=== PATIENT | male | born 1990 | race African-American/Black ===

== ENCOUNTER 2018-11-16 21:42 | Emergency (ER) | payer OTHER ==
[2018-11-16 22:04] VITALS: BP 137/86; PULSE 80; RESP 18; TEMP 98
[2018-11-16] MEDS ORDERED: KETOROLAC 60 MG/2 ML VIAL IM STA (22:35)
--- NOTE | 2018-11-16 22:37 | ED ---
General Adult HPI - General Chief complaint: Dental/Oral Stated complaint: abscessed tooth Source: patient, RN notes reviewed, old records reviewed Mode of arrival: ambulatory Limitations: no limitations - History of Present Illness Initial comments: 28-year-old male patient with no pertinent past medical history presents to ED with 2 days of tooth pain. Patient states that approximately 2 days ago he began to have pain in his left lower molar and realized it was broken. Patient states that he contact his dentist was not able to be seen until Monday. Patient to ED for pain control. Patient denies any other signs or symptoms. Patient denies fever/chills, nausea vomiting diarrhea, chest pain, shortness breath, abdominal pain. Systemic: Pt denies fatigue, myalgia, fever/chills, rash. Pt denies weakness, night sweats, weight loss. Neuro: Pt denies headache, visual disturbances, syncope or pre-syncope. HEENT: Pt denies ocular discharge or irritation, otalgia, rhinorrhea, pharyngitis or notable lymphadenopathy. Cardiopulmonary: Pt denies chest pain, SOB, heart palpitations, dyspnea on exertion. Abdominal/GI: Pt denies abdominal pain, n/v/d. : Pt denies dysuria, burning w/ urination, frequency/urgency. Denies new onset urinary or bowel incontinence. MSK: Pt denies myalgia, loss of strength or function in extremities. Neuro: Pt denies new onset weakness, paresthesias. - Related Data Home Medications Medication Instructions Recorded Confirmed Ibuprofen [Motrin] 800 mg PO BID PRN 11/16/18 11/16/18 Previous Rx's Medication Instructions Recorded Amoxicillin 500 mg PO Q8H 10 Days day 11/16/18 Ibuprofen [Motrin] 600 mg PO Q6HR PRN #40 day 11/16/18 Allergies Allergy/AdvReac Type Severity Reaction Status Date / Time acetaminophen [From Lortab] Allergy Rash/Hives Verified 11/16/18 22:28 diphenhydramine Allergy Rash/Hives Verified 11/16/18 22:28 [From Benadryl] hydrocodone Allergy Rash/Hives Verified 11/16/18 22:28 Review of Systems ROS Statement: Those systems with pertinent positive or pertinent negative responses have been documented in the HPI. ROS Other: All systems not noted in ROS Statement are negative. Past Medical History Past Medical History: No Reported History History of Any Multi-Drug Resistant Organisms: None Reported Past Surgical History: No Surgical Hx Reported Past Psychological History: No Psychological Hx Reported Smoking Status: Current every day smoker Past Alcohol Use History: None Reported Past Drug Use History: None Reported General Exam - General Exam Comments Initial Comments: Constitutional: NAD, AOX3, Pt has pleasant affect. HEENT: NC/AT, trachea midline, neck supple, no lymphadenopathy. Posterior pharynx non erythematous, without exudates. External ears appear normal, without discharge. Mucous membranes moist. Eyes PERRLA, EOM intact. There is no scleral icterus. No pallor noted. Dental exam revealed poor dentition, tooth # 19 broken, mildly tender to palpation, gum of tooth 19 also mildly tender to palpation, no erythema disrcharge or abscess noted. Cardiopulmonary: RRR, no murmurs, rubs or gallops, no JVD noted. Lungs CTAB in anterior and posterior schofield. No peripheral edema. Abdominal exam: Abdomen soft and non-distended. Abdomen non-tender to palpation in all 4 quadrants. Bowel sounds active in LLQ. No hepatosplenomegaly. No ecchymosis Neuro: CN II-XII grossly intact. No nuchal rigidity. MSK: No posterior calf tenderness bilaterally, homans sign negative bilaterally. Posterior tibialis and radial pulse +2 bilaterally. Sensation intact in upper and lower extremities. Full active ROM in upper and lower extremities, 5/5 stregnth. Limitations: no limitations Course Vital Signs 11/16/18 22:02 Temperature 98 F Pulse Rate 80 Respiratory 18 Rate Blood Pressure 137/86 O2 Sat by Pulse 98 Oximetry Medical Decision Making - Medical Decision Making 28-year-old male patient with no pertinent past medical history presents to ED with 2 days of tooth pain. Patient states that approximately 2 days ago he began to have pain in his left lower molar and realized it was broken. Dental exam revealed poor dentition, tooth #19 broken, mildly tender to palpation, gum of tooth 19 also mildly tender to palpation, no erythema disrcharge or abscess noted. Pt pain moderately well controlled with toradol. Pt rx amoxicillin prophylactically. Patient educated depth about dental pain, patient verbalized understanding. Patient to be prescribed ibuprofen to use as needed for pain and inflammation. Patient to follow up with dentist appointment on Monday. Pt to f/u with PCP in 1-2 days. Patient to return to ED if new signs symptoms develop or if condition worsens in any way. Case discussed in depth with Dr. Plaza. Disposition Clinical Impression: Tooth pain Disposition: HOME SELF-CARE Condition: Stable Instructions: Dental Caries (ED), Toothache (ED) Additional Instructions: Patient to adhere to previously discussed treatment plan and will take medication(s) as directed. Patient to follow up with PCP in 1-2 days. Patient to return to ED if symptoms do not improve. Prescriptions: Amoxicillin 500 mg PO Q8H 10 Days day Ibuprofen [Motrin] 600 mg PO Q6HR PRN #40 day PRN Reason: Pain Is patient prescribed a controlled substance at d/c from ED?: No Referrals: None,Stated [Primary Care Provider] - 1-2 days Time of Disposition: 22:36
== END 2018-11-16 23:02 | disposition home or self-care (01) ==
LOC: SUPCPDRO 21:42 → EC 21:42
DX: K08.89 Other specified disorders of teeth and supporting structures (principal); F17.200 Nicotine dependence, unspecified, uncomplicated; Z88.5 Allergy status to narcotic agent; Z88.6 Allergy status to analgesic agent; Z88.8 Allergy status to other drugs, medicaments and biological substances
CPT/HCPCS: 99283; 96372; J1885

== ENCOUNTER 2019-01-16 22:53 | Emergency (ER) | payer OTHER ==
[2019-01-16 23:11] VITALS: BP 130/79; PULSE 120; RESP 18; TEMP 98.4
== END 2019-01-16 23:52 | disposition home or self-care (01) ==
LOC: EC 22:53
DX: Z02.83 Encounter for blood-alcohol and blood-drug test (principal); Y99.0 Civilian activity done for income or pay
CPT/HCPCS: 82075

== ENCOUNTER → 2019-12-03 | Outpatient (CLI) | payer OTHER ==
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
== END | disposition home or self-care (01) ==
LOC: RADMRIMAIN 08:21
PROVIDERS: ATTEND Internal Medicine
DX: M79.641 Pain in right hand (principal)

== ENCOUNTER 2024-01-27 02:05 | Emergency (ER) | payer OTHER ==
[2024-01-27 02:43] VITALS: BP 95/64; PULSE 82; RESP 18; TEMP 98.5
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
[2024-01-27 03:37] LABS: Basophils # (A) 0.1 k/uL (0-0.2); Basophils % (A) 1 %; Eosinophils # (A) 0.3 k/uL (0-0.7); Eosinophils % (A) 3 %; HCT 48.3 % (39.0-53.0); HGB 15.3 gm/dL (13.0-17.5); Lymphocytes # (A) 3.4 k/uL (1.0-4.8); Lymphocytes % (A) 38 %; MCH 29.1 pg (25.0-35.0); MCHC 31.7 g/dL (31.0-37.0); MCV 91.9 fL (80.0-100.0); Mean Platelet Volume 8.5; Monocytes # (A) 0.4 k/uL (0-1.0); Monocytes % (A) 4 %; Neutrophils # (A) 4.7 k/uL (1.3-7.7); Neutrophils % (A) 51 %; Platelet Count 286 k/uL (150-450); RBC 5.25 m/uL (4.30-5.90); RDW 13.1 % (11.5-15.5); WBC 9.2 k/uL (3.8-10.6)
[2024-01-27] MEDS: SODIUM CHLORIDE 0.9% 1,000 ML IV STA (03:38)
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
[2024-01-27 04:00] LABS: INR 0.9 (<1.2); Partial Thromboplastin Time 25.2 sec (22.0-30.0); Prothrombin Time 10.3 sec (10.0-12.5)
[2024-01-27 04:02] LABS: ALT 23 U/L (4-49); AST 31 U/L (17-59); African American GFR (CKD) >90 (>60 ml/min/1.73 sqM); Albumin 4.2 g/dL (3.5-5.0); Alkaline Phosphatase 97 U/L (38-126); Anion Gap 10 mmol/L; Blood Urea Nitrogen 12 mg/dL (9-20); Calcium 8.8 mg/dL (8.4-10.2); Carbon Dioxide 22 mmol/L (22-30); Chloride 112 mmol/L (98-107); Glucose 87 mg/dL (74-99); Non-African American GFR(CKD) >90 (>60 ml/min/1.73 sqM); Potassium 4.2 mmol/L (3.5-5.1); Sodium 144 mmol/L (137-145); Total Bilirubin 0.3 mg/dL (0.2-1.3); Total Protein 7.1 g/dL (6.3-8.2)
[2024-01-27 04:03] LABS: Amphetamine Screen,Urine Not Detected (NotDetected); Barbiturate Screen,Urine Not Detected (NotDetected); Benzodiazepines Screen,Urine Not Detected (NotDetected); Cocaine Screen,Urine Not Detected (NotDetected); Methadone Screen, Urine Not Detected (NotDetected); Opiate Screen,Urine Not Detected (NotDetected); Oxycodone Screen, Urine Not Detected (NotDetected); Phencyclidine Screen,Urine Not Detected (NotDetected); Tricyclic Antidepressant,Urine Not Detected (NotDetected); Urn Cannabinoid Scrn Detected (NotDetected)
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
[2024-01-27 04:10] LABS: Alcohol 252 mg/dL
== END 2024-01-27 04:12 | disposition home or self-care (01) ==
LOC: EC 02:05
DX: S61.412A Laceration without foreign body of left hand, initial encounter (principal); S61.411A Laceration without foreign body of right hand, initial encounter; F10.129 Alcohol abuse with intoxication, unspecified; Z88.6 Allergy status to analgesic agent; Z88.5 Allergy status to narcotic agent; Z88.8 Allergy status to other drugs, medicaments and biological substances; Y90.8 Blood alcohol level of 240 mg/100 ml or more; Y92.410 Unspecified street and highway as the place of occurrence of the external cause
CPT/HCPCS: 36415; 93005; 80053; 84484; 85025; 85610; 85730; 80306; 80320; 73130; 72170; 71045; 72125; 70450; 71260; 74177; 99285; 96360; Q9967